=== PATIENT | female | born 1970 | race Caucasian/White ===

== ENCOUNTER 2016-11-23 19:30 | Emergency (ER) | payer OTHER ==
[~2016-11-23] VITALS: Ht 152.4 cm; Wt 78.0 kg
[~2016-11-23 19:30] MED LIST: AZIT-21 PO; Allegra; CIPR500T78 PO; CYCL10TA9 PO; FURO40TA4 PO; HYDR-2890 PO; HYDR-34 PO; HYDR-3456 PO; HYDR-3583 PO; HYDR1TAB PO; Hydrocodone; IBUP-30 PO; IBUP200C92 PO; Ibuprofen; LEVO500T69 PO; LISI-552 PO; LISI10TA2 PO; LISI20TA PO; LISINOPRIL; LORA10TA7 PO; NEOM10DR9 OT; OMEP20CA12 PO; OMEP20CA6 PO; OMEP40CA36 PO; ONDA8TAB9 PO; OXYC1TAB87 PO; POTA10TA86 PO; POTA20TA15 PO; PRD20T PO; RABE20TA PO; RANI-10; SULF1TAB38 PO; TOPI50TA20; TRAM-21 PO; [UNRECOGNIZED DRUG - REMARK]; prilosec
--- OUTSIDE RECORDS SUMMARY | 2016-11-23 19:37 | XMS REPORT | Continuity of Care Document ---
Author Author [facility] Organization [facility] Address Unknown Phone Unavailable Care Team Providers Care Professional Engineer Name Role Phone [facility] OF PCP Insurance Providers Payer Name Policy Number Subscriber Name Relationship Self Pay Omaira Amaya 18 Self / Same As Patient Advance Directives Directive Response Recorded Date/Time Advance Directives No 01/19/15 2:24pm Health Care Power of Administrative Support Coordinator No 01/19/15 2:24pm Organ Donor Yes 01/19/15 2:24pm Resuscitation Status Full Code 01/19/15 2:24pm Problems Medical Problems Problem Onset Date Status Hypokalemia Unknown Active Upper respiratory infection Unknown Active MILD HYPERKALEMIA Unknown Active NON-COMPLIANCY Unknown Active Pneumonia Unknown Active Headache Unknown Active Tension type headache Unknown Active Abdominal pain, RUQ (right upper quadrant) Unknown Active Abdominal pain, RUQ (right upper quadrant) Unknown Active Urinary tract infection Unknown Active Non-compliance Unknown Active Hypertension Unknown Active Urinary tract infection Unknown Active Medications Medication Dose Route Sig Days/Qty Instructions Order Date Discontinued Date Status [Swati] 09/28/07 07/10/09 Discontinued [prilosec] 09/28/07 07/10/09 Discontinued [Hydrocodone ] 09/28/07 07/10/09 Discontinued [Ibuprofen] 09/28/07 12/09/10 Discontinued Topiramate 07/10/09 12/09/10 Discontinued [Bp Med (?)] 07/10/09 07/10/09 Discontinued Ranitidine Hcl 08/20/09 01/19/11 Discontinued Lisinopril (Zestril) 1 Tab PO TWICE A DAY 07/10/09 11/28/13 Discontinued Ibuprofen 600 Mg PO DAILY 12/09/10 04/16/13 Discontinued Rabeprazole Sodium 1 Tab PO DAILY 12/09/10 06/23/12 Discontinued Acetaminophen/Hydrocodone Bitart 1 Ea PO Q 4 - 6 HR PRN 14 Qty 05/22/14 Discontinued Loratadine 10 Mg PO DAILY PRN 06/23/12 04/16/13 Discontinued Omeprazole 1 Cap PO DAILY PRN 06/23/12 11/28/13 Discontinued Acetaminophen/Hydrocodone Bitart 1 - 2 Each PO Q4HR PRN 10 Qty 04/16/13 Discontinued Omeprazole 20 Mg PO DAILY 08/02/13 05/22/14 Discontinued Furosemide (Lasix) 1 Each PO DAILY 5 Qty 08/02/13 11/28/13 Discontinued Potassium Chloride 1 Each PO DAILY 5 Qty 08/02/13 11/28/13 Discontinued Azithromycin (Zpak) 1 Tab PO DAILY 6 Qty 2 tabs po today, then 1 tab po daily on days 2-5 11/28/13 11/28/13 Discontinued Prednisone 40 Mg PO DAILY 6 Qty 11/28/13 02/16/14 Discontinued Potassium Chloride 2 Each PO DAILY 2 Qty 11/28/13 02/16/14 Discontinued Levofloxacin 1 Each PO DAILY 7 Qty 11/28/13 12/04/13 Discontinued Ciprofloxacin HCl 500 Mg PO TWICE A DAY 5 Days 02/16/14 05/22/14 Discontinued Acetaminophen/Hydrocodone Bitart 1 Tab PO Q4-6HR PRN PAIN 10 Qty FOR PAIN 02/16/14 05/22/14 Discontinued Hydrocodone Bit/Acetaminophen 1 Each PO NEEDED 05/22/14 06/10/14 Discontinued [Lisinopril] 05/22/14 06/12/14 Discontinued Omeprazole 40 Mg PO DAILY 05/22/14 01/19/15 Discontinued Ibuprofen 200 Mg PO EVERY 6 HOURS PRN PAIN 06/10/14 Active Oxycodone/Acetaminophen 1 Tab PO EVERY 4HRS PRN PAIN 20 Qty 06/12/14 01/19/15 Discontinued Lisinopril 10 Mg PO DAILY 30 Qty 06/12/14 01/19/15 Discontinued Cyclobenzaprine HCl (Flexeril) 1 Each PO EVERY 8HRS 15 Qty 01/19/15 Active Tramadol Hcl 50 Mg PO EVERY 4HRS 20 Qty 01/19/15 Active Ciprofloxacin HCl 500 Mg PO TWICE A DAY 20 Qty 01/19/15 Active Social History Social History Problem Response Recorded Date/Time Alcohol Use Denies Use 01/19/2015 2:24pm Recreational Drug Use No 01/19/2015 2:24pm Recent Foreign Travel No 06/11/2014 12:24am Recent Infectious Disease Exposure No 06/11/2014 12:24am Hospitalization with Isolation Denies 01/19/2015 2:24pm Sexually Transmitted Disease No 01/19/2015 2:24pm HIV/AIDS No 01/19/2015 2:24pm Smoking Status Never a Smoker 01/19/2015 2:24pm Query Response Start Date Stop Date Smoking Status Never a Smoker Hospital Discharge Instructions No hospital discharge instructions. Plan of Care No plan of care. Functional Status No functional status results. Allergies, Adverse Reactions, Alerts Allergen Type Severity Reaction Status Last Updated penicillin G Allergy Unknown PT CAN HAVE ANCEF Active 09/27/07 Immunizations Name Given Type Date of Pneumonia Vaccine 11/21/12 Historical Tetanus Booster (TDap) More than 5yrs Historical Vital Signs Acute Vital Signs Vital Response Date/Time Temperature (Fahrenheit) 97.4 degrees F (97.6 - 99.5) Temperature (Calculated Celsius) 36.91409 degrees C (36.4 - 37.5) Temperature Source Temporal Pulse Rate (adult) 94 bpm (60 - 90) Respiratory Rate 18 bpm (12 - 24) O2 Sat by Pulse Oximetry 95 % (88 - 100) Blood Pressure 143/86 mm Hg Pain Pain Intensity 6 Height (Feet) 5 feet Height (Inches) 0 inches Height (Calculated Centimeters) 152.660076 cm Weight (Pounds) 175 pounds Weight (Calculated Kilograms) 79.513890 kilograms Calculated BMI 34.17 Results Laboratory Results Test Name Result Units Flags Reference Collection Date/Time Result Date/ Time Comments White Blood Count 12.1 10^3/uL H 4.3-11.0 01/19/2015 2:50pm 01/19/2015 3: 11pm Red Blood Count 5.87 10^6/uL H 4.35-5.85 01/19/2015 2:50pm 01/19/2015 3: 11pm Hemoglobin 15.9 G/DL 11.5-16.0 01/19/2015 2:50pm 01/19/2015 3:11pm Hematocrit 48 % 35-52 01/19/2015 2:50pm 01/19/2015 3:11pm Mean Corpuscular Volume 82 FL 80-99 01/19/2015 2:50pm 01/19/2015 3: 11pm Mean Corpuscular Hemoglobin 27 PG 25-34 01/19/2015 2:50pm 01/19/2015 3: 11pm Mean Corpuscular Hemoglobin Concent 33 G/DL 32-36 01/19/2015 2:50pm 11/2014 3:11pm Red Cell Distribution Width 15.2 % H 10.0-14.5 01/19/2015 2:50pm 2014 3:11pm Platelet Count 268 10^3/uL 130-400 01/19/2015 2:50pm 01/19/2015 3:11pm Mean Platelet Volume 12.0 FL H 7.4-10.4 01/19/2015 2:50pm 01/19/2015 3: 11pm Neutrophils (%) (Auto) 74 % 42-75 01/19/2015 2:50pm 01/19/2015 3:11pm Lymphocytes (%) (Auto) 17 % 12-44 01/19/2015 2:50pm 01/19/2015 3:11pm Monocytes (%) (Auto) 7 % 0-12 01/19/2015 2:50pm 01/19/2015 3:11pm Eosinophils (%) (Auto) 2 % 0-10 01/19/2015 2:50pm 01/19/2015 3:11pm Basophils (%) (Auto) 1 % 0-10 01/19/2015 2:50pm 01/19/2015 3:11pm Neutrophils # (Auto) 9.0 X 10^3 H 1.8-7.8 01/19/2015 2:50pm 01/19/2015 3: 11pm Lymphocytes # (Auto) 2.0 X 10^3 1.0-4.0 01/19/2015 2:50pm 01/19/2015 3: 11pm Monocytes # (Auto) 0.8 X 10^3 0.0-1.0 01/19/2015 2:50pm 01/19/2015 3: 11pm Eosinophils # (Auto) 0.3 10^3/uL 0.0-0.3 01/19/2015 2:50pm 01/19/2015 3 :11pm Basophils # (Auto) 0.1 10^3/uL 0.0-0.1 01/19/2015 2:50pm 01/19/2015 3: 11pm Urine Color YELLOW 01/19/2015 3:22pm 01/19/2015 3:41pm Urine Clarity SLIGHTLY CLOUDY 01/19/2015 3:22pm 01/19/2015 3:41pm Urine pH 6 5-9 01/19/2015 3:22pm 01/19/2015 3:41pm Urine Specific Thomas 1.020 1.016-1.022 01/19/2015 3:22pm 2014 3:41pm Urine Protein 1+ * NEGATIVE 01/19/2015 3:22pm 01/19/2015 3:41pm Urine Glucose (UA) NEGATIVE NEGATIVE 01/19/2015 3:22pm 01/19/2015 3: 41pm Urine RBC (Auto) 1+ * NEGATIVE 01/19/2015 3:22pm 01/19/2015 3:41pm Urine Ketones NEGATIVE NEGATIVE 01/19/2015 3:22pm 01/19/2015 3:41pm Urine Nitrite NEGATIVE NEGATIVE 01/19/2015 3:22pm 01/19/2015 3:41pm Urine Bilirubin NEGATIVE NEGATIVE 01/19/2015 3:22pm 01/19/2015 3: 41pm Urine Urobilinogen NORMAL MG/DL NORMAL 01/19/2015 3:22pm 01/19/2015 3: 41pm Urine Leukocyte Esterase NEGATIVE NEGATIVE 01/19/2015 3:22pm 2014 3:41pm Urine RBC 0-2 /HPF 01/19/2015 3:22pm 01/19/2015 3:41pm Urine WBC 0-2 /HPF 01/19/2015 3:22pm 01/19/2015 3:41pm Urine Bacteria MODERATE /HPF * 01/19/2015 3:22pm 01/19/2015 3:41pm Urine Squamous Epithelial Cells 10-25 /HPF * 01/19/2015 3:22pm 2014 3:41pm Urine Crystals NONE /LPF 01/19/2015 3:22pm 01/19/2015 3:41pm Urine Casts NONE /LPF 01/19/2015 3:22pm 01/19/2015 3:41pm Urine Mucus NEGATIVE /LPF 01/19/2015 3:22pm 01/19/2015 3:41pm Urine Culture Indicated YES 01/19/2015 3:22pm 01/19/2015 3:41pm Sodium Level 139 MMOL/L 135-145 01/19/2015 2:50pm 01/19/2015 3:32pm Potassium Level 4.0 MMOL/L 3.6-5.0 01/19/2015 2:50pm 01/19/2015 3:32pm Chloride Level 105 MMOL/L 98-107 01/19/2015 2:50pm 01/19/2015 3:32pm Carbon Dioxide Level 22 MMOL/L 21-32 01/19/2015 2:50pm 01/19/2015 3: 32pm Blood Urea Nitrogen 12 MG/DL 7-18 01/19/2015 2:50pm 01/19/2015 3:32pm Creatinine 0.71 MG/DL 0.60-1.30 01/19/2015 2:50pm 01/19/2015 3:32pm BUN/Creatinine Ratio 17 01/19/2015 2:50pm 01/19/2015 3:32pm Estimat Glomerular Filtration Rate > 60 01/19/2015 2:50pm 2014 3:32pm GFR INTERPRETIVE DATA UNITS FOR ESTIMATED GFR (eGFR): mL/min/1.73 M2 REFERENCE RANGE FOR ESTIMATED GFR (eGFR) eGFR NORMAL eGFR >60 MODERATELY DECREASED eGFR 30-59 SEVERLY DECREASED eGFR 15-29 KIDNEY FAILURE <15 (OR DIALYSIS) Glucose Level 108 MG/DL H 70-105 01/19/2015 2:50pm 01/19/2015 3:32pm Calcium Level 10.7 MG/DL H 8.5-10.1 01/19/2015 2:50pm 01/19/2015 3:32pm Total Bilirubin 0.4 MG/DL 0.1-1.0 01/19/2015 2:50pm 01/19/2015 3:32pm Alkaline Phosphatase 109 U/L 40-136 01/19/2015 2:50pm 01/19/2015 3: 32pm Aspartate Amino Transf (AST/SGOT) 16 U/L 5-34 01/19/2015 2:50pm 2014 3:32pm Alanine Aminotransferase (ALT/SGPT) 13 U/L 0-55 01/19/2015 2:50pm 01/19 3:32pm Total Protein 7.3 G/DL 6.4-8.2 01/19/2015 2:50pm 01/19/2015 3:32pm Albumin 4.2 G/DL 3.2-4.5 01/19/2015 2:50pm 01/19/2015 3:32pm Amylase Level 49 U/L 25-125 01/19/2015 2:50pm 01/19/2015 3:32pm Lipase 11 U/L 8-78 01/19/2015 2:50pm 01/19/2015 3:32pm Procedures No known history of procedures. Encounters Encounter Location Date/Time Registered Emergency Room [facility] 01/19/15 2:16pm Recent Diagnosis
[2016-11-23] MEDS ORDERED: OFLO5DRO7 OT (20:05)
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
[2016-11-23 20:22] VITALS: BP 148/84
== END 2016-11-23 20:22 | disposition home or self-care (01) ==
LOC: EDUNIT# 19:30 → ER 19:32
DX: H72.92 Unspecified perforation of tympanic membrane, left ear (principal); I10 Essential (primary) hypertension; Z79.899 Other long term (current) drug therapy
CPT/HCPCS: 99283

== ENCOUNTER 2018-05-22 18:52 | Emergency (ER) | payer SELFPAY ==
[~2018-05-22] VITALS: Ht 152.4 cm; Wt 78.0 kg
[~2018-05-22 18:52] MED LIST changes: +OFLO5DRO7 OT
[2018-05-22] MEDS ORDERED: KETOROLAC 60 MG/2 ML VIAL IM ONE (19:30)
[2018-05-22] MEDS ORDERED: DEXAMETHASONE 10 MG/ML (DECADRON) 1 ML VIAL IM ONE (19:30)
[2018-05-22] MEDS ORDERED: CEPHALEXIN 250 MG (KEFLEX) CAP PO ONE (19:30)
--- NOTE | 2018-05-22 19:53 | Diagnostic Imaging Report ---
Indication: Pain and swelling Comparison: None Findings: Three views of the left ankle are obtained. No acute fracture, malalignment or osseous destructive process is seen. Joint spaces are preserved. There is moderate soft tissue swelling. Impression: Moderate soft tissue swelling without evidence of an acute osseous abnormality. Dictated by: Dictated on workstation # [id number]
[2018-05-22] MEDS ORDERED: CEPH-507 PO (19:59)
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
[2018-05-22 20:01] VITALS: BP 205/106
== END 2018-05-22 20:03 | disposition home or self-care (01) ==
LOC: EDUNIT# 18:52 → ER 18:54
DX: M25.472 Effusion, left ankle (principal); I10 Essential (primary) hypertension; G43.909 Migraine, unspecified, not intractable, without status migrainosus; K21.9 Gastro-esophageal reflux disease without esophagitis; Z87.81 Personal history of (healed) traumatic fracture; Z90.710 Acquired absence of both cervix and uterus; Z98.51 Tubal ligation status; Z87.828 Personal history of other (healed) physical injury and trauma; Z88.0 Allergy status to penicillin
CPT/HCPCS: 73610; 96372

== ENCOUNTER 2019-03-07 22:00 | Emergency (ER) | payer SELFPAY ==
[~2019-03-07] VITALS: Ht 152.4 cm; Wt 88.5 kg
[~2019-03-07 22:00] MED LIST changes: +CEPH-507 PO
--- OUTSIDE RECORDS SUMMARY | 2019-03-07 22:05 | XMS REPORT ---
Author Author CHA FELIX Organization [facility] Address [address] [place] [address] Care Team Providers Care Instructional Technology Facilitator Name Role Phone CHA FELIX Unavailable PROBLEMS Type Condition ICD9-CM Code [id number] Code Onset Dates Condition Status SNOMED Code Problem Chronic gingivitis, plaque induced K05.10 Active 68718054 Problem Hypertension, benign I10 Active [id number] ALLERGIES Substance Reaction Event Type Date Status Penicillin V Potassium Unknown Drug Allergy Apr, Active ENCOUNTERS Encounter Location Date Diagnosis [address] [address] Apr, Hypertension, benign I10 ; Blister (nonthermal) of oral cavity, initial encounter S00.522A and Chronic gingivitis, plaque induced K05.10 [facility] [id number] [place] [phone] Feb, Acute pain of right shoulder M25.511 and BMI 40.0-44.9, adult Z68.[address] [place] [id number] [place] [phone] Jun, [facility] IN [facility] [address] [address] May, Chronic seasonal allergic rhinitis due to other allergen J30.2 and Bilateral otitis media with effusion H65.[address] [place] [id number] [place] [phone] May, [address] [address] May, [place] [address] [place] [id number] [place] [phone] Oct, IMMUNIZATIONS No Known Immunizations SOCIAL HISTORY Never Assessed REASON FOR VISIT Establish Care PLAN OF CARE VITAL SIGNS Height 60 in 2018-05-01 Weight 205 lbs 2018-05-01 Temperature 98.0 degrees Fahrenheit 2018-05-01 Heart Rate 80 bpm 2018-05-01 Respiratory Rate 18 2018-05-01 BMI 40.03 kg/m2 2018-05-01 Blood pressure systolic 152 mmHg 2018-05-01 Blood pressure diastolic 102 mmHg 2018-05-01 MEDICATIONS Medication Instructions Dosage Frequency Start Date End Date Duration Status Lasix 20 mg Orally Once a day 1 tablet 24h Apr, 30 day(s) Active Amlodipine Besylate 5 mg Orally Once a day 1 tablet 24h Apr, 30 day(s) Active Ibuprofen 200 MG Orally every 6 hrs 1 tablet with food or milk as needed 6h Active Clindamycin HCl 300 MG Orally every 6 hrs 1 capsule 6h Apr,Apr 10 days Active Protonix 40 mg Orally Once a day 1 tablet 24h Active Cyclobenzaprine HCl 5 mg Orally Three times a day PRN 1-2 Feb, Not-Taking Tramadol HCl 50 mg Orally every 12 hrs PRN pain 1 tablet Feb, Not-Taking RESULTS No Results PROCEDURES No Known procedures INSTRUCTIONS MEDICATIONS ADMINISTERED No Known Medications MEDICAL (GENERAL) HISTORY Type Description Date Medical History HTN Medical History GERD Surgical History TVH with BSO Surgical History Surgical History Reconstructive Surgery on Head Surgical History Eye Surger...as a child Hospitalization History post surgery
--- OUTSIDE RECORDS SUMMARY | 2019-03-07 22:05 | XMS REPORT ---
Author Author NADIA Vallecillo Organization [facility] Address [address] [place] [address] Care Team Providers Care Meat Department Manager Name Role Phone NADIA Vallecillo Unavailable PROBLEMS Type Condition ICD9-CM Code [id number] Code Onset Dates Condition Status SNOMED Code Problem Chronic gingivitis, plaque induced K05.10 Active 89602861 Problem Hypertension, benign I10 Active [id number] ALLERGIES Substance Reaction Event Type Date Status Penicillin V Potassium Unknown Drug Allergy Feb, Active ENCOUNTERS Encounter Location Date Diagnosis [address] [address] Apr, Hypertension, benign I10 ; Blister (nonthermal) of oral cavity, initial encounter S00.522A and Chronic gingivitis, plaque induced K05.10 [facility] [id number] [place] [phone] Feb, Acute pain of right shoulder M25.511 and BMI 40.0-44.9, adult Z68.41 [facility] [address] [place], [place] [id number] [place] [phone] Jun, [facility] [id number] [place] [phone] May, Chronic seasonal allergic rhinitis due to other allergen J30.2 and Bilateral otitis media with effusion H65.93 [facility] [address] [address] May, [facility] [id number] [place] [phone] May, [place] [address] [address] Oct, IMMUNIZATIONS No Known Immunizations SOCIAL HISTORY Never Assessed REASON FOR VISIT right shoulder pain post fall on easter. fell on the ice outside on a ramp. [email or web address] PLAN OF CARE Activity Details Follow Up prn Reason: VITAL SIGNS Height 60 in 2018-03-03 Weight 210.0 lbs 2018-03-03 Temperature 97.7 degrees Fahrenheit 2018-03-03 Heart Rate 82 bpm 2018-03-03 Respiratory Rate 20 2018-03-03 BMI 41.01 kg/m2 2018-03-03 Blood pressure systolic 134 mmHg 2018-03-03 Blood pressure diastolic 80 mmHg 2018-03-03 MEDICATIONS Medication Instructions Dosage Frequency Start Date End Date Duration Status Hydrocodone-Acetaminophen 10-325 MG Orally every 6 hrs 1 tablet as needed 6h Not-Taking Tramadol HCl 50 mg Orally every 12 hrs PRN pain 1 tablet Feb, Active Protonix 40 mg Orally Once a day 1 tablet 24h Active Ibuprofen 200 MG Orally every 6 hrs 1 tablet with food or milk as needed 6h Active Lisinopril 20 MG Orally Once a day 1 tablet 24h Active Cyclobenzaprine HCl 5 mg Orally Three times a day PRN 1-2 Feb, Active RESULTS No Results PROCEDURES No Known procedures INSTRUCTIONS MEDICATIONS ADMINISTERED No Known Medications MEDICAL (GENERAL) HISTORY Type Description Date Medical History HTN Medical History GERD Surgical History TVH with BSO Surgical History Surgical History Reconstructive Surgery on Head Surgical History Eye Surger...as a child Hospitalization History post surgery
--- OUTSIDE RECORDS SUMMARY | 2019-03-07 22:06 | XMS REPORT ---
Author Author CHA FELIX Organization [facility] Address [address] [place] [address] Care Team Providers Care Quantitative Analyst Name Role Phone ELVIRACHA Unavailable PROBLEMS Unknown Problems ALLERGIES Substance Reaction Event Type Date Status Penicillin V Potassium Unknown Drug Allergy May, Active ENCOUNTERS Encounter Location Date Diagnosis [facility] [id number] [address] Jun, [facility] [id number] [address] May, Chronic seasonal allergic rhinitis due to other allergen J30.2 and Bilateral otitis media with effusion H65.93 [facility] [id number] [address] May, [facility] [id number] [address] May, [facility] [id number] [address] Oct, IMMUNIZATIONS No Known Immunizations SOCIAL HISTORY Never Assessed REASON FOR VISIT dizziness, headache for the past 2 days. also has had some nausea and her left ear hurts. [email or web address] PLAN OF CARE VITAL SIGNS Height 60 in 2017-06-08 Weight 192.8 lbs 2017-06-08 Temperature 97.7 degrees Fahrenheit 2017-06-08 Heart Rate 80 bpm 2017-06-08 Respiratory Rate 18 2017-06-08 BMI 37.65 kg/m2 2017-06-08 Blood pressure systolic 138 mmHg 2017-06-08 Blood pressure diastolic 86 mmHg 2017-06-08 MEDICATIONS Medication Instructions Dosage Frequency Start Date End Date Duration Status Lisinopril 20 MG Orally Once a day 1 tablet 24h Active Ibuprofen 200 MG Orally every 6 hrs 1 tablet with food or milk as needed 6h Active Protonix 40 mg Orally Once a day 1 tablet 24h Active Hydrocodone-Acetaminophen 10-325 MG Orally every 6 hrs 1 tablet as needed 6h Active Cetirizine HCl 10 mg Orally Once a day 1 tablet 24h May, Nov, 30 day(s) Active PredniSONE 20 mg Orally Once a day 2 tablets 24h May, May, 05 days Active RESULTS No Results PROCEDURES No Known procedures INSTRUCTIONS MEDICATIONS ADMINISTERED No Known Medications MEDICAL (GENERAL) HISTORY Type Description Date Medical History HTN Medical History GERD Surgical History TVH with BSO Surgical History Surgical History Reconstructive Surgery on Head Surgical History Eye Surger...as a child Hospitalization History post surgery
--- OUTSIDE RECORDS SUMMARY | 2019-03-07 22:07 | XMS REPORT | Continuity of Care Document ---
Author Organization Unknown Address Unknown Allergies Active Description Code Type Severity Reaction Onset Reported/Identified Relationship to Patient Clinical Status Yes penicillin G [id number] Drug Allergy Unknown PT CAN HAVE ANC 11/20/2016 Medications There is no data. Problems Date Dx Coded Attending Type Code Diagnosis Diagnosed By 07/09/2008 ERIN GARCIAS, QUENTIN V 401.1 HYPERTENSION, BENIGN ESSENTIAL 07/09/2008 ERIN GARCIAS, QUENTIN V 784.0 HEADACHE 10/30/2008 ERIN GARCIAS, QUENTIN V 682.9 CELLULITIS AND ABSCESS OF UNSPECIFIED SITES 10/19/2011 Ot 525.9 DENTAL DISORDER NOS 12/16/2011 Ot 840.9 SPRAIN SHOULDER/ARM NOS 12/16/2011 Ot 959.2 SHLDR/UPPER ARM INJ NOS 12/16/2011 Ot E000.8 OTHER EXTERNAL CAUSE STATUS 12/16/2011 Ot E849.[address]/HIGHWAY 12/16/2011 Ot E927.0 OVEREXERTION FROM SUDDEN STRENUOUS MOVEM 04/17/2013 LYSSA RAMIREZ Ot 924.11 CONTUSION OF KNEE 04/17/2013 LYSSA RAMIREZ Ot 959.7 LOWER LEG INJURY NOS 04/17/2013 LYSSA RAMIREZ Ot E000.8 OTHER EXTERNAL CAUSE STATUS 04/17/2013 LYSSA RAMIREZ Ot E849.0 ACCIDENT IN HOME 04/17/2013 LYSSA RAMIREZ Ot E888.9 FALL NOS 04/17/2013 LYSSA RAMIREZ Ot V06.1 [id number], COMBINED [ 08/02/2013 CASSIUS PERLA DO Ot 401.9 HYPERTENSION NOS 08/02/2013 CASSIUS PERLA DO Ot 729.81 SWELLING OF LIMB 08/02/2013 CASSIUS PERLA DO Ot 782.3 EDEMA 08/02/2013 CASSIUS PERLA DO Ot V15.81 HX OF PAST NONCOMPLIANCE 08/02/2013 CASSIUS PERLA DO Ot V58.69 OTH MED,LT,CURRENT USE 11/28/2013 FELIBERTO HIDALGO APRN Ot 276.8 HYPOPOTASSEMIA 11/28/2013 FELIBERTO HIDALGO APRN Ot 465.9 ACUTE URI NOS 11/28/2013 FELIBERTO HIDALGO APRN Ot 786.2 COUGH 12/04/2013 MINDA CASSIUS MURRAY Ot 276.7 HYPERPOTASSEMIA 12/04/2013 MINDA , CASSIUS K Ot 486 PNEUMONIA, ORGANISM NOS 12/04/2013 MINDA , CASSIUS K Ot 786.2 COUGH 12/04/2013 MINDA , CASSIUS K Ot V15.81 HX OF PAST NONCOMPLIANCE 02/16/2014 YUNI LAM, BENJAMÍN Khoury Ot 590.80 PYELONEPHRITIS NOS 02/16/2014 BENJAMÍN MORRISSEY MD Ot 724.5 BACKACHE NOS 05/22/2014 CHA MARTIN DO Ot 784.0 HEADACHE 06/12/2014 FRAN LAM, KELLY Dewey Ot 255.9 ADRENAL DISORDER N0S 06/12/2014 FRAN LAM, KELLY Dewey Ot 401.9 HYPERTENSION NOS 06/12/2014 FRAN LAM, KELLY Dewey Ot 530.81 ESOPHAGEAL REFLUX 06/12/2014 FRAN LAM, KELLY Dewey Ot 553.3 DIAPHRAGMATIC HERNIA 06/12/2014 KELLY PETERS MD Ot 786.09 RESPIRATORY ABNORM NEC 06/12/2014 KELLY PETERS MD Ot 789.01 ABDOMINAL PAIN, RIGHT UPPER QUADRANT 01/19/2015 Ot 227.0 BENIGN NEOPLASM ADRENAL 01/19/2015 Ot 401.9 HYPERTENSION NOS 01/19/2015 Ot 599.0 URIN TRACT INFECTION NOS 01/19/2015 Ot 789.00 ABDOMINAL PAIN, UNSPECIFIED SITE 01/19/2015 Ot V15.81 HX OF PAST NONCOMPLIANCE 10/22/2016 FELIBERTO HIDALGO APRN Ot I10 ESSENTIAL (PRIMARY) HYPERTENSION 10/22/2016 FELIBERTO HIDALGO APRN Ot R11.2 NAUSEA WITH VOMITING, UNSPECIFIED 10/22/2016 FELIBERTO HIDALGO APRN Ot R19.7 DIARRHEA, UNSPECIFIED 10/22/2016 FELIBERTO HIDALGO APRN Ot R42 DIZZINESS AND GIDDINESS 10/22/2016 HIDALGO, PETER J NURSING STAFF DEVELOPMENT COORDINATOR Ot R51 HEADACHE 10/22/2016 FELIBERTO HIDALGO NURSING STAFF DEVELOPMENT COORDINATOR Ot Z79.899 OTHER FITTING ROOM INSPECTOR (CURRENT) DRUG THERAPY 10/25/2016 FELIBERTO HIDALGO NURSING STAFF DEVELOPMENT COORDINATOR Ot I10 ESSENTIAL (PRIMARY) HYPERTENSION 10/25/2016 FELIBERTO HIDALGO NURSING STAFF DEVELOPMENT COORDINATOR Ot R11.2 NAUSEA WITH VOMITING, UNSPECIFIED 10/25/2016 FELIBERTO HIDALGO NURSING STAFF DEVELOPMENT COORDINATOR Ot R19.7 DIARRHEA, UNSPECIFIED 10/25/2016 FELIBERTO HIDALGO NURSING STAFF DEVELOPMENT COORDINATOR Ot R42 DIZZINESS AND GIDDINESS 10/25/2016 FELIBERTO HIDALGO NURSING STAFF DEVELOPMENT COORDINATOR Ot R51 HEADACHE 10/25/2016 FELIBERTO HIDALGO NURSING STAFF DEVELOPMENT COORDINATOR Ot Z79.899 OTHER FITTING ROOM INSPECTOR (CURRENT) DRUG THERAPY 10/26/2016 FELIBERTO HIDALGO NURSING STAFF DEVELOPMENT COORDINATOR Ot I10 ESSENTIAL (PRIMARY) HYPERTENSION 10/26/2016 FELIBERTO HIDALGO NURSING STAFF DEVELOPMENT COORDINATOR Ot R11.2 NAUSEA WITH VOMITING, UNSPECIFIED 10/26/2016 FELIBERTO HIDALGO NURSING STAFF DEVELOPMENT COORDINATOR Ot R19.7 DIARRHEA, UNSPECIFIED 10/26/2016 FELIBERTO HIDALGO NURSING STAFF DEVELOPMENT COORDINATOR Ot R42 DIZZINESS AND GIDDINESS 10/26/2016 FELIBERTO HIDALGO APRN Ot R51 HEADACHE 10/26/2016 FELIBERTO HIDALGO NURSING STAFF DEVELOPMENT COORDINATOR Ot Z79.899 OTHER LONGTERM (CURRENT) DRUG THERAPY 10/28/2016 FELIBERTO HIDALGO NURSING STAFF DEVELOPMENT COORDINATOR Ot I10 ESSENTIAL (PRIMARY) HYPERTENSION 10/28/2016 FELIBERTO HIDALGO NURSING STAFF DEVELOPMENT COORDINATOR Ot R11.2 NAUSEA WITH VOMITING, UNSPECIFIED 10/28/2016 FELIBERTO HIDALGO NURSING STAFF DEVELOPMENT COORDINATOR Ot R19.7 DIARRHEA, UNSPECIFIED 10/28/2016 FELIBERTO HIDALGO NURSING STAFF DEVELOPMENT COORDINATOR Ot R42 DIZZINESS AND GIDDINESS 10/28/2016 FELIBERTO HIDALGO NURSING STAFF DEVELOPMENT COORDINATOR Ot R51 HEADACHE 10/28/2016 FELIBERTO HIDALGO NURSING STAFF DEVELOPMENT COORDINATOR Ot Z79.899 OTHER FITTING ROOM INSPECTOR (CURRENT) DRUG THERAPY 11/20/2016 LUIS LAM, FOUZIA Bynum Ot S19.9XXA UNSPECIFIED INJURY OF NECK, INITIAL ENCO 11/20/2016 FOUZIA SMITH MD Ot S24.109A UNSP INJURY AT UNSP LEVEL OF THORACIC SP 11/20/2016 LUIS LAM, FOUZIA Bynum Ot S60.511A ABRASION OF RIGHT HAND, INITIAL ENCOUNTE 11/20/2016 FOUZIA SMITH MD Ot S60.512A ABRASION OF LEFT HAND, INITIAL ENCOUNTER 11/20/2016 FOUZIA SMITH MD Ot S80.211A ABRASION, RIGHT KNEE, INITIAL ENCOUNTER 11/20/2016 FOUZIA SMITH MD Ot S80.212A ABRASION, LEFT KNEE, INITIAL ENCOUNTER 11/20/2016 FOUZIA SMITH MD Ot S80.811A ABRASION, RIGHT LOWER LEG, INITIAL ENCOU 11/20/2016 FOUZIA SMITH MD Ot W01.0XXA FALL SAME LEV FROM SLIP/TRIP W/O STRIKE 11/20/2016 FOUZIA SMITH MD Ot Y99.8 OTHER EXTERNAL CAUSE STATUS 11/20/2016 FOUZIA SMTIH MD Ot Z79.899 OTHER FITTING ROOM INSPECTOR (CURRENT) DRUG THERAPY 11/23/2016 FOUZIA SMITH MD Ot S19.9XXA UNSPECIFIED INJURY OF NECK, INITIAL ENCO 11/23/2016 FOUZIA SMITH MD Ot S24.109A UNSP INJURY AT UNSP LEVEL OF THORACIC SP 11/23/2016 FOUZIA SMITH MD Ot S60.511A ABRASION OF RIGHT HAND, INITIAL ENCOUNTE 11/23/2016 FOUZIA SMITH MD Ot S60.512A ABRASION OF LEFT HAND, INITIAL ENCOUNTER 11/23/2016 FOUZIA SMITH MD Ot S80.211A ABRASION, RIGHT KNEE, INITIAL ENCOUNTER 11/23/2016 FOUZIA SMITH MD Ot S80.212A ABRASION, LEFT KNEE, INITIAL ENCOUNTER 11/23/2016 FOUZIA SMITH MD Ot S80.811A ABRASION, RIGHT LOWER LEG, INITIAL ENCOU 11/23/2016 FOUZIA SMITH MD Ot W01.0XXA FALL SAME LEV FROM SLIP/TRIP W/O STRIKE 11/23/2016 FOUZIA SMITH MD Ot Y99.8 OTHER EXTERNAL CAUSE STATUS 11/23/2016 FOUZIA SMITH MD Ot Z79.899 OTHER FITTING ROOM INSPECTOR (CURRENT) DRUG THERAPY 11/23/2016 RAD MEDINA LYSSA Valerie Ot H72.92 UNSPECIFIED PERFORATION OF TYMPANIC MEMB 11/23/2016 RAD MEDINA LYSSA Valerie Ot I10 ESSENTIAL (PRIMARY) HYPERTENSION 11/23/2016 RAD MEDINALYSSA Ot S09.302A UNSPECIFIED INJURY OF LEFT MIDDLE AND IN 11/23/2016 RAD MEDINA LYSSA Valerie Ot Z79.899 OTHER FITTING ROOM INSPECTOR (CURRENT) DRUG THERAPY 11/25/2016 RAD MEDINA LYSSA Valerie Ot H72.92 UNSPECIFIED PERFORATION OF TYMPANIC MEMB 11/25/2016 RAD MEDINA LYSSA Valerie Ot I10 ESSENTIAL (PRIMARY) HYPERTENSION 11/25/2016 RAD MEDINA LYSSA Valerie Ot S09.302A UNSPECIFIED INJURY OF LEFT MIDDLE AND IN 11/25/2016 RAD MEDINA LYSSA Valerie Ot Z79.899 OTHER FITTING ROOM INSPECTOR (CURRENT) DRUG THERAPY 11/29/2016 RAD MEDINA LYSSA Valerie Ot H72.92 UNSPECIFIED PERFORATION OF TYMPANIC MEMB 11/29/2016 RAD MEDINA LYSSA Valerie Ot I10 ESSENTIAL (PRIMARY) HYPERTENSION 11/29/2016 RAD MEDINA LYSSA Valerie Ot S09.302A UNSPECIFIED INJURY OF LEFT MIDDLE AND IN 11/29/2016 RAD MEDINA LYSSA Valerie Ot Z79.899 OTHER FITTING ROOM INSPECTOR (CURRENT) DRUG THERAPY 05/22/2018 FELIBERTO HIDALGO APRN Ot G43.909 MIGRAINE, UNSP, NOT INTRACTABLE, WITHOUT 05/22/2018 FELIBERTO HIDALGO APRN Ot I10 ESSENTIAL (PRIMARY) HYPERTENSION 05/22/2018 FELIBERTO HIDALGO APRN Ot K21.9 GASTRO-ESOPHAGEAL REFLUX DISEASE WITHOUT 05/22/2018 FELIBERTO HIDALGO APRN Ot M25.472 EFFUSION, LEFT ANKLE 05/22/2018 FELIBERTO HIDALGO APRN Ot M25.572 PAIN IN LEFT ANKLE AND JOINTS OF LEFT FO 05/22/2018 FELIBERTO HIDALGO APRN Ot Z87.81 PERSONAL HISTORY OF (HEALED) TRAUMATIC F 05/22/2018 FELIBERTO HIDALGO APRN Ot Z87.828 PERSONAL HISTORY OF OTH (HEALED) PHYSICA 05/22/2018 FELIBERTO HIDALGO APRN Ot Z88.0 ALLERGY STATUS TO PENICILLIN 05/22/2018 FELIBERTO HIDALGO APRN Ot Z90.710 ACQUIRED ABSENCE OF BOTH CERVIX AND UTER 05/22/2018 FELIBERTO HIDALGO APRN Ot Z98.51 TUBAL LIGATION STATUS 05/24/2018 FELIBERTO HIDALGO APRN Ot G43.909 MIGRAINE, UNSP, NOT INTRACTABLE, WITHOUT 05/24/2018 FELIBERTO HIDALGO APRN Ot I10 ESSENTIAL (PRIMARY) HYPERTENSION 05/24/2018 FELIBERTO HIDALGO APRN Ot K21.9 GASTRO-ESOPHAGEAL REFLUX DISEASE WITHOUT 05/24/2018 FELIBERTO HIDALGO APRN Ot M25.472 EFFUSION, LEFT ANKLE 05/24/2018 FELIBERTO HIDALGO APRN Ot M25.572 PAIN IN LEFT ANKLE AND JOINTS OF LEFT FO 05/24/2018 FELIBERTO HIDALGO APRN Ot Z87.81 PERSONAL HISTORY OF (HEALED) TRAUMATIC F 05/24/2018 FELIBERTO HIDALGO APRN Ot Z87.828 PERSONAL HISTORY OF OTH (HEALED) PHYSICA 05/24/2018 FELIBERTO HIDALGO APRN Ot Z88.0 ALLERGY STATUS TO PENICILLIN 05/24/2018 FELIBERTO HIDALGO APRN Ot Z90.710 ACQUIRED ABSENCE OF BOTH CERVIX AND UTER 05/24/2018 FELIBERTO HIDALGO APRN Ot Z98.51 TUBAL LIGATION STATUS Procedures There is no data. Results Test Result Range Complete blood count (CBC) with automated white blood cell (WBC) differential - 10/22/16 13:29 Blood leukocytes automated count (number/volume) 16.6 10*3/uL 4.3-11.0 Blood erythrocytes automated count (number/volume) 5.40 10*6/uL 4.35-5.85 Venous blood hemoglobin measurement (mass/volume) 14.8 g/dL 11.5-16.0 Blood hematocrit (volume fraction) 44 % 35-52 Automated erythrocyte mean corpuscular volume 81 [foz_us] 80-99 Automated erythrocyte mean corpuscular hemoglobin (mass per erythrocyte) 27 pg 25-34 Automated erythrocyte mean corpuscular hemoglobin concentration measurement ( mass/volume) 34 g/dL 32-36 Automated erythrocyte distribution width ratio 14.2 % 10.0-14.5 Automated blood platelet count (count/volume) 276 10*3/uL 130-400 Automated blood platelet mean volume measurement 12.0 [foz_us] 7.4-10.4 Automated blood neutrophils/100 leukocytes 88 % 42-75 Automated blood lymphocytes/100 leukocytes 8 % 12-44 Blood monocytes/100 leukocytes 4 % 0-12 Automated blood eosinophils/100 leukocytes 0 % 0-10 Automated blood basophils/100 leukocytes 1 % 0-10 Blood neutrophils automated count (number/volume) 14.6 10*3 1.8-7.8 Blood lymphocytes automated count (number/volume) 1.3 10*3 1.0-4.0 Blood monocytes automated count (number/volume) 0.6 10*3 0.0-1.0 Automated eosinophil count 0.0 10*3/uL 0.0-0.3 Automated blood basophil count (count/volume) 0.1 10*3/uL 0.0-0.1 Blood manual differential performed detection - 10/22/16 13:29 Blood monocytes/100 leukocytes 1 % NRG Manual blood segmented neutrophils/100 leukocytes 93 % NRG Blood band neutrophils/100 leukocytes 0 % NRG Manual blood lymphocytes/100 leukocytes 6 % NRG Manual eosinophils/100 leukocytes in nose 0 % NRG Manual blood basophils/100 leukocytes 0 % NRG Blood erythrocyte morphology finding identification NORMAL [facility] Comprehensive metabolic panel - 10/22/16 13:29 Serum or plasma sodium measurement (moles/volume) 142 mmol/L 135-145 Serum or plasma potassium measurement (moles/volume) 3.7 mmol/L 3.6-5.0 Serum or plasma chloride measurement (moles/volume) 108 mmol/L 98-107 Carbon dioxide 25 mmol/L 21-32 Serum or plasma anion gap determination (moles/volume) 9 mmol/L 5-14 Serum or plasma urea nitrogen measurement (mass/volume) 15 mg/dL 7-18 Serum or plasma creatinine measurement (mass/volume) 0.67 mg/dL 0.60-1.30 Serum or plasma urea nitrogen/creatinine mass ratio 22 NRG Serum or plasma creatinine measurement with calculation of estimated glomerular filtration rate > NRG Serum or plasma glucose measurement (mass/volume) 155 mg/dL 70-105 Serum or plasma calcium measurement (mass/volume) 10.3 mg/dL 8.5-10.1 Serum or plasma total bilirubin measurement (mass/volume) 0.4 mg/dL 0.1-1.0 Serum or plasma alkaline phosphatase measurement (enzymatic activity/volume) 96 U/L 40-136 Serum or plasma aspartate aminotransferase measurement (enzymatic activity/ volume) 18 U/L 5-34 Serum or plasma alanine aminotransferase measurement (enzymatic activity/volume ) 19 U/L 0-55 Serum or plasma protein measurement (mass/volume) 6.3 g/dL 6.4-8.2 Serum or plasma albumin measurement (mass/volume) 4.2 g/dL 3.2-4.5 Complete urinalysis with reflex to culture - 10/22/16 15:20 Urine color determination YELLOW NRG Urine clarity determination CLEAR NRG Urine pH measurement by test strip 8 5-9 Specific gravity of urine by test strip 1.020 1.016- 1.022 Urine protein assay by test strip, semi-quantitative NEGATIVE NEGATIVE Urine glucose detection by automated test strip NEGATIVE NEGATIVE Erythrocytes detection in urine sediment by light microscopy NEGATIVE NEGATIVE Urine ketones detection by automated test strip NEGATIVE NEGATIVE Urine nitrite detection by test strip NEGATIVE NEGATIVE Urine total bilirubin detection by test strip NEGATIVE NEGATIVE Urine urobilinogen measurement by automated test strip (mass/volume) NORMAL NORMAL Urine leukocyte esterase detection by dipstick NEGATIVE NEGATIVE Automated urine sediment erythrocyte count by microscopy (number/high power field) NONE NRG Automated urine sediment leukocyte count by microscopy (number/high power field ) RARE NRG Bacteria detection in urine sediment by light microscopy TRACE NRG Squamous epithelial cells detection in urine sediment by light microscopy 0-2 NRG Crystals detection in urine sediment by light microscopy PRESENT NRG Casts detection in urine sediment by light microscopy NONE NRG Mucus detection in urine sediment by light microscopy NEGATIVE NRG Complete urinalysis with reflex to culture NO NRG Amorphous sediment detection in urine sediment by light microscopy MOD HEENA PHOSPHATE NRG Encounters ACCT No. Visit Date/Time Discharge Status Pt. Type Provider Facility Loc./Unit Complaint [id number] 05/22/2018 18:54:00 05/22/2018 20:03:00 DIS Emergency FELIBERTO HIDALGO APRN [facility] ER L FOOT PAIN/SWELLING [id number] 11/23/2016 19:32:00 11/23/2016 20:22:00 DIS Emergency LYSSA RAMIREZ [facility] ER L EAR INJ/BLEEDING [id number] 11/20/2016 22:05:00 11/20/2016 23:22:00 DIS Emergency FOUZIA SMITH MD [facility] ER FALL [id number] 10/22/2016 13:15:00 10/22/2016 16:25:00 DIS Emergency FELIBERTO HIDALGO APRN [facility] ER HEADACHE VOMITING/ DIARRHEA DIZZINESS [id number] 06/11/2014 00:10:00 06/12/2014 15:29:00 DIS Inpatient KELLY PETERS MD [facility] SURGICAL RUQ ABD PAIN [id number] 05/22/2014 03:01:00 05/22/2014 04:27:00 DIS Emergency CHA MARTIN DO [facility] ER HEADACHE [id number] 02/16/2014 00:18:00 02/16/2014 02:26:00 DIS Emergency BENJAMÍN MORRISSEY MD [facility] ER BACK PAIN [id number] 12/04/2013 16:36:00 12/04/2013 19:25:00 DIS Emergency CASSIUS PERLA DO [facility] ER FLU [id number] 11/28/2013 12:26:00 11/28/2013 16:09:00 DIS Emergency FELIBERTO HIDALGO APRN [facility] ER COUGH/CONGESTION [id number] 08/02/2013 04:06:00 08/02/2013 05:32:00 DIS Emergency CASSIUS PERLA DO [facility] ER LEG SWELLING [id number] 04/16/2013 23:01:00 04/17/2013 00:20:00 DIS Emergency LYSSA RAMIREZ [facility] ER L LEG INJ [id number] 03/07/2019 22:01:00 ACT Emergency FELIBERTO HIDALGO APRN [facility] ER R ANKLE INJ [id number] 01/19/2015 14:16:00 Document Registration [id number] 12/16/2011 19:34:00 Document Registration [id number] 10/19/2011 20:12:00 Document Registration [id number] 02/26/2013 13:07:00 02/26/2013 23:59:59 CLS Outpatient [place] [id number] 05/01/2018 17:40:00 05/01/2018 23:59:59 CLS Outpatient CANDIDO CARSON APRN [facility]
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
[2019-03-07] MEDS ORDERED: IBUPROFEN 800 MG (MOTRIN) TAB PO ONE (22:15)
[2019-03-07 22:40] VITALS: BP 196/100
--- NOTE | 2019-03-08 08:11 | Diagnostic Imaging Report ---
INDICATION: Right ankle injury 3 views of the right ankle show no fracture, dislocation or other acute abnormalities. IMPRESSION: Negative right ankle Dictated by: Dictated on workstation # [id number]
== END 2019-03-07 22:40 | disposition home or self-care (01) ==
LOC: EDUNIT# 22:00 → ER 22:01
DX: S93.401A Sprain of unspecified ligament of right ankle, initial encounter (principal); I10 Essential (primary) hypertension; G43.909 Migraine, unspecified, not intractable, without status migrainosus; K21.9 Gastro-esophageal reflux disease without esophagitis; Z88.0 Allergy status to penicillin; Z90.710 Acquired absence of both cervix and uterus; Z98.51 Tubal ligation status; X50.1XXA Overexertion from prolonged static or awkward postures, initial encounter; Y92.59 Other trade areas as the place of occurrence of the external cause; Y99.0 Civilian activity done for income or pay
CPT/HCPCS: 73610

== ENCOUNTER 2020-12-22 13:02 | Emergency (ER) | payer SELFPAY ==
[~2020-12-22] VITALS: Ht 152 cm; Wt 91.0 kg
[~2020-12-22 13:02] MED LIST changes: +OFLO5DRO33 OT; -OFLO5DRO7 OT
[2020-12-22] MEDS ORDERED: HYDROmorphone 2 MG/ML VIAL (DILAUDID) ONE (13:03)
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
[2020-12-22] MEDS ORDERED: HYDROmorphone 2 MG/ML VIAL (DILAUDID) IV ONE (13:15)
[2020-12-22 13:16] LABS: BASOPHILS # (AUTO) 0.2 10^3/uL (0.0-0.1); BASOPHILS % (AUTO) 1 % (0-10); EOSINOPHILS # (AUTO) 0.4 10^3/uL (0.0-0.3); EOSINOPHILS % (AUTO) 3 % (0-10); HEMATOCRIT 42 % (35-52); HEMOGLOBIN 13.4 g/dL (11.5-16.0); LYMPHOCYTES # (AUTO) 2.7 10^3/uL (1.0-4.0); LYMPHOCYTES % (AUTO) 22 % (12-44); MEAN CORPUSCULAR HEMOGLOBIN 26 pg (25-34); MEAN CORPUSCULAR HGB CONC 32 g/dL (32-36); MEAN CORPUSCULAR VOLUME 81 fL (80-99); MONOCYTES # (AUTO) 0.8 10^3/uL (0.0-1.0); MONOCYTES % (AUTO) 7 % (0-12); NEUTROPHILS # (AUTO) 8.4 10^3/uL (1.8-7.8); NEUTROPHILS % (AUTO) 67 % (42-75); PLATELET COUNT 265 10^3/uL (130-400); WHITE BLOOD COUNT 12.6 10^3/uL (4.3-11.0)
--- NOTE | 2020-12-22 13:24 | NUR ---
CAPNOGRAPHY MONITORY PLACED AND 2LPM PER NC PLACED AFTER PAIN MEDICATIONS GIVEN.
--- NOTE | 2020-12-22 13:25 | NUR ---
PT 40 ETCO2, RR22, 97% ON 2LPM, 81BPM
[2020-12-22] MEDS ORDERED: NS (IVPB) 250 ML IV ONE (14:00)
[2020-12-22] MEDS ORDERED: KETAMINE/NaCl 50 MG/5 ML SYRINGE (ED ONLY) IV ONE (14:00)
--- NOTE | 2020-12-22 14:06 | NUR ---
ASSESSED PT PAIN LEVEL, STATED SHE STILL HAD PAIN BUT THE MEDICATION WAS STILL WORKING. ETCO2 40, RR 22, 98%, 97 BPM
--- NOTE | 2020-12-22 14:08 | Diagnostic Imaging Report ---
INDICATION: Status post fall onto shoulder with pain and decreased range of motion. TECHNIQUE: Three views of the right shoulder. CORRELATION STUDY: None. FINDINGS: Overall assessment is compromised; however, there is a comminuted impacted right humeral head and neck fracture. Impaction is particularly along the humeral neck. Slight outward displacement of the particularly greater tuberosity. The glenohumeral joint is otherwise grossly maintained without mini dislocation. Mild hypertrophic change about the acromioclavicular joint. Advanced degenerative change of the visualized cervical spine. IMPRESSION: Comminuted impacted right humeral head and neck fracture. No gross dislocation. Dictated by: Dictated on workstation # [id number]
--- NOTE | 2020-12-22 14:11 | Diagnostic Imaging Report ---
Indication: Fall onto right shoulder, has right shoulder and right rib pain. Time of exam: 1:40 PM An AP view of the chest as well as multiple views of the right ribs were obtained. No definite displaced rib fracture is detected. No parenchymal contusion, effusion or pneumothorax is seen. There does appear to be a fracture of the proximal humerus with involvement of the greater tuberosity. Impression: 1. Proximal humerus fracture. 2. No displaced rib fracture is detected. Dictated by: Dictated on workstation # [id number]
[2020-12-22] MEDS ORDERED: OXYC-471 PO (14:20)
--- NOTE | 2020-12-22 14:20 | NUR ---
PT REMOVED FROM NC O2 2LPM AND OBSERVED ON ROOM AIR. PT SAT HOLDING AT 97% VIA CAPNOGRAPHY SATURATION MONITOR.
--- NOTE | 2020-12-22 14:50 | NUR ---
ASSISTED PT TO TAKE HER HOME BP MEDS. HYDROCHLOROTHIAZIDE AND AMLODIPINE BENSYLATE. SHE HADN'T TAKEN HER HOME BP MEDS PRIOR TO FALL.
[2020-12-22] MEDS ORDERED: KETOROLAC 30 MG/ML VIAL IVP ONE (15:00)
[2020-12-22 15:27] VITALS: BP 190/96
== END 2020-12-22 15:31 | disposition home or self-care (01) ==
LOC: EDUNIT# 13:02 → ER 13:04
DX: S42.291A Other displaced fracture of upper end of right humerus, initial encounter for closed fracture (principal); I10 Essential (primary) hypertension; G89.29 Other chronic pain; M54.9 Dorsalgia, unspecified; Z87.820 Personal history of traumatic brain injury; Z88.0 Allergy status to penicillin; Z79.891 Long term (current) use of opiate analgesic; W18.39XA Other fall on same level, initial encounter
CPT/HCPCS: 71101; 73030; 85025; L3650; 36415

== ENCOUNTER 2022-01-01 09:34 | Outpatient (RCR) | payer OTHER ==
[~2022-01-01 09:34] MED LIST changes: -LISI-552 PO; +LISI20TA26 PO; +OXYC1TAB11 PO
== END 2022-01-07 09:43 | disposition home or self-care (01) ==
PROVIDERS: ATTEND Orthopaedic Surgery
DX: Z96.611 Presence of right artificial shoulder joint (principal)

== ENCOUNTER → 2023-06-14 | Outpatient (CLI) | payer OTHER ==
--- NOTE | 2023-06-14 13:01 | Diagnostic Imaging Report ---
Indication: Bilateral knee pain AP and lateral views of both knees are obtained No fracture or acute bone abnormality seen. There is mild medial joint space narrowing on the right side with mild osteophyte formation. There is no joint effusion. Impression: Minor degenerative changes of the medial compartment of the right knee. No acute abnormality. Dictated by: Dictated on workstation # [id number]
--- NOTE | 2023-06-14 13:01 | Diagnostic Imaging Report ---
Indication: Neck pain AP and odontoid and oblique and lateral views of cervical spine are obtained Films are somewhat technically limited. The cervical vertebrae are normal in height and alignment. There is diffuse degenerative change with disc space narrowing osteophyte formation from C4 through C7. There is diffuse facet degenerative change. Odontoid appears intact. Impression: Diffuse degenerative change of the cervical spine as described above. Consider MRI for more complete evaluation if clinically warranted. Dictated by: Dictated on workstation # [id number]
--- NOTE | 2023-06-14 13:02 | Diagnostic Imaging Report ---
Indication: Back pain AP and lateral views the lumbar spine obtained. The lumbar vertebrae are normal in height and alignment. There are small osteophytes at L2-L3 with mild disc space narrowing at L2-L3. There is some facet degenerative change from L4 through S1. IMPRESSION: Chronic changes the lumbar spine as described above with no acute appearing abnormality. Dictated by: Dictated on workstation # [id number]
== END ==
LOC: RAD 08:51
PROVIDERS: ATTEND Family Medicine
DX: M48.061 Spinal stenosis, lumbar region without neurogenic claudication (principal); M47.817 Spondylosis without myelopathy or radiculopathy, lumbosacral region; M17.11 Unilateral primary osteoarthritis, right knee; M47.812 Spondylosis without myelopathy or radiculopathy, cervical region; M48.02 Spinal stenosis, cervical region; M25.78 Osteophyte, vertebrae
CPT/HCPCS: 72050; 72100